=== PATIENT | male | born 1985 | race American Indian/Alaskan Native ===

== ENCOUNTER 2020-12-07 20:44 | Observation (INO) | payer MEDICAID ==
[2020-12-07] MEDS ORDERED: SODIUM CHLORIDE 0.9% 1000 ML 1,000 ML IV ONE (22:14)
--- NOTE | 2020-12-07 22:19 | Emergency Department Report ---
HPI - General Chief Complaint: Abdominal Pain Time Seen by Provider: 12/07/20 21:59 - HPI HPI: MSE 5 The patient is a 35-year-old male present with a chief complaint of abdominal pain. Patient states for the past 3 days he has had intermittent epigastric abdominal pain described as sharp in nature. Patient also complains of soreness to the bilateral ribs. Patient states he had 2 episodes of nausea vomiting yesterday. The patient used an enema yesterday and said he passed brown stool with yellow and clear mucus. Patient currently gives his pain a score of 8/10. The patient states she has not received any vaccinations against COVID-19 ED Past Medical Hx - Past Medical History Hx Diabetes: Yes - Surgical History Additional Surgical History: Cataract surgery - Family History Family history: no significant - Social History Smoking Status: Never Smoker Substance Use Type: Alcohol (Rarely), Marijuana ED Review of Systems ROS: Stated complaint: STOMACH PAIN NAUSEA FATIGUE HBS Other details as noted in HPI Constitutional: denies: fever Eyes: denies: eye pain ENT: denies: throat pain Respiratory: denies: wheezing Cardiovascular: denies: chest pain Endocrine: no symptoms reported Gastrointestinal: abdominal pain, nausea, vomiting, constipation Genitourinary: denies: dysuria Musculoskeletal: denies: back pain Neurological: denies: headache Physical Exam - Physical Exam Vital Signs: Vital Signs 12/07/20 21:49 Temperature 98.3 F Pulse Rate 97 H Respiratory 16 Rate Blood Pressure 115/83 O2 Sat by Pulse 98 Oximetry Physical Exam: GENERAL: The patient is well-developed well-nourished male lying on stretcher not appearing to be in acute distress. [] HEENT: Normocephalic. Atraumatic. Extraocular motions are intact. Patient has moist mucous membranes. NECK: Supple. Trachea midline CHEST/LUNGS: Clear to auscultation. There is no respiratory distress noted. HEART/CARDIOVASCULAR: Regular. There is no tachycardia. There is no gallop rub or murmur. ABDOMEN: Abdomen is soft, with diffuse tenderness to palpation. There is no rebound or guarding. Patient has normal bowel sounds. There is no abdominal distention. SKIN: There is no rash. There is no edema. There is no diaphoresis. NEURO: The patient is awake, alert, and oriented. The patient is cooperative. The patient has no focal neurologic deficits. The patient has normal speech. GCS 15 MUSCULOSKELETAL: There is no CVA tenderness. There is no evidence of acute injury. ED Course Vital Signs 12/07/20 21:49 Temperature 98.3 F Pulse Rate 97 H Respiratory 16 Rate Blood Pressure 115/83 O2 Sat by Pulse 98 Oximetry ED Medical Decision Making - Lab Data Result diagrams: 12/07/20 22:35 12/07/20 22:35 Laboratory Tests 12/07/20 12/07/20 12/07/20 21:59 22:35 22:35 WBC 6.6 RBC 5.74 H Hgb 15.4 H Hct 46.5 H MCV 81 L MCH 27 L MCHC 33 RDW 14.1 Plt Count 295 Lymph % (Auto) 28.6 [place] % (Auto) 9.1 H Eos % (Auto) 1.8 Baso % (Auto) 0.6 Lymph # (Auto) 1.9 Trinity # (Auto) 0.6 Eos # (Auto) 0.1 Baso # (Auto) 0.0 Seg Neutrophils % 59.9 Seg Neutrophils # 4.0 VBG pH Sodium 133 L Potassium 4.8 Chloride 92.9 L Carbon Dioxide 19 L Anion Gap 26 BUN 12 Creatinine 0.8 Estimated GFR > 60 BUN/Creatinine Ratio 15 Glucose 330 H POC Glucose 342 H Calcium 10.2 Total Bilirubin 0.90 AST 10 ALT 11 Alkaline Phosphatase 95 Total Creatine Kinase 58 CK-MB (CK-2) 2.3 CK-MB (CK-2) Rel Index 3.9 Troponin T < 0.010 Total Protein 8.8 H Albumin 4.4 Albumin/Globulin Ratio 1.0 Lipase 83 H 12/07/20 22:35 WBC RBC Hgb Hct MCV MCH MCHC RDW Plt Count Lymph % (Auto) [place] % (Auto) Eos % (Auto) Baso % (Auto) Lymph # (Auto) Trinity # (Auto) Eos # (Auto) Baso # (Auto) Seg Neutrophils % Seg Neutrophils # VBG pH 7.308 L Sodium Potassium Chloride Carbon Dioxide Anion Gap BUN Creatinine Estimated GFR BUN/Creatinine Ratio Glucose POC Glucose Calcium Total Bilirubin AST ALT Alkaline Phosphatase Total Creatine Kinase CK-MB (CK-2) CK-MB (CK-2) Rel Index Troponin T Total Protein Albumin Albumin/Globulin Ratio Lipase - EKG Data -: EKG Interpreted by Ms EKG shows normal: sinus rhythm Rate: normal - EKG Data Interpretation: nonspecific ST-T wave gray - Differential Diagnosis Constipation, SBO, pancreatitis, gastritis, ACS, PUD Critical care attestation.: If time is entered above; I have spent that time in minutes in the direct care of this critically ill patient, excluding procedure time. ED Disposition Clinical Impression: Acute abdominal pain, DKA (diabetic ketoacidosis) Disposition: ADMITTED INPATIENT Is pt being admited?: Yes Does the pt Need Aspirin: No Condition: Fair Instructions: Diabetic Ketoacidosis (ED) Time of Disposition: 01:13 (Hospitalist notified (Dr Hernandez))
[2020-12-07] MEDS ORDERED: ONDANSETRON 4 MG/2 ML INJ IV ONE (23:12)
[2020-12-07] MEDS ORDERED: KETOROLAC 30 MG/1 ML INJ IV ONE (23:13)
[2020-12-07 23:21] LABS: Basophils % (Auto) 0.6 % (0.0-1.8); Eosinophils # (Auto) 0.1 K/mm3 (0.0-0.4); Eosinophils % (Auto) 1.8 % (0.0-4.3); Hemoglobin 15.4 gm/dl (11.8-15.2); Lymphocytes # (Auto) 1.9 K/mm3 (1.2-5.4); Lymphocytes % (Auto) 28.6 % (13.4-35.0); Monocytes # (Auto) 0.6 K/mm3 (0.0-0.8); Monocytes % (Auto) 9.1 % (0.0-7.3)
[2020-12-07 23:34] LABS: Creatine Kinase MB 2.3 ng/mL (0.0-4.0); Hematocrit 46.5 % (35.5-45.6); Mean Corpuscular HGB Conc 33 % (32-34); Mean Corpuscular Volume 81 fl (84-94); Platelet Count 295 K/mm3 (140-440); Red Blood Count 5.74 M/mm3 (3.65-5.03); Red Cell Distribution Width 14.1 % (13.2-15.2)
[2020-12-07 23:38] LABS: Alanine Aminotransferase 11 units/L (7-56); Albumin 4.4 g/dL (3.9-5); BUN/Creatinine Ratio 15; Blood Urea Nitrogen 12 mg/dL (9-20); Calcium 10.2 mg/dL (8.4-10.2); Hemolysis Index 41
--- NOTE | 2020-12-08 00:45 | Cat Scan Report ---
CT ABDOMEN AND PELVIS WITH CONTRAST INDICATION / CLINICAL INFORMATION: Epigastric pain, constipation, nausea vomiting. TECHNIQUE: Axial CT images were obtained through the abdomen and pelvis after 100 cc of Omnipaque [address] scans at this location are performed using CT dose reduction for ALARA by means of automated exposure control. COMPARISON: None available. FINDINGS: LOWER CHEST: No significant abnormality. AORTA / ARTERIES: No significant abnormality. IVC / VEINS: No significant abnormality. LYMPH NODES: No significant adenopathy. COLON: No significant abnormality. APPENDIX: No significant abnormality. STOMACH / SMALL BOWEL: No significant abnormality. PERITONEUM: No free fluid. No free air. No fluid collection. LIVER: No significant abnormality. GALLBLADDER: No significant abnormality. BILE DUCTS: No significant abnormality. PANCREAS: No significant abnormality. SPLEEN: No significant abnormality. ADRENALS: No significant abnormality. RIGHT KIDNEY / URETER: No significant abnormality. LEFT KIDNEY / URETER: No significant abnormality. URINARY BLADDER: No significant abnormality. REPRODUCTIVE ORGANS: No significant abnormality. SKELETAL SYSTEM: No significant abnormality. ADDITIONAL FINDINGS: There is a metallic density within the soft tissues of the left posterior thorax . IMPRESSION: 1. No CT findings to explain symptomatology. 2. Metallic density within the subcutaneous tissues of the left posterior thorax. Signer Name: Jonn Acharya DO Signed: 12/08/2020 12:40 AM Workstation Name: [id number]
[2020-12-08] MEDS ORDERED: INSULIN REGULAR, HUMAN 100 UNITS in SODIUM CHLORIDE 0.9% 99 ML IV SCH (01:00)
[2020-12-08 01:53] LABS: BUN/Creatinine Ratio 13; Blood Urea Nitrogen 12 mg/dL (9-20); Calcium 9.2 mg/dL (8.4-10.2); Hemolysis Index 0
[2020-12-08] MEDS ORDERED: SODIUM CHLORIDE 0.9% 1000 ML 1,000 ML ONE (01:54)
[2020-12-08] MEDS ORDERED: MAGNESIUM HYDROXIDE (MOM) ORAL LIQD UDC PO PRN (02:42)
[2020-12-08] MEDS ORDERED: ACETAMINOPHEN 325 MG TAB PO PRN (02:42)
[2020-12-08] MEDS ORDERED: MORPHINE 4 MG/1 ML INJ IV PRN (02:42)
[2020-12-08] MEDS ORDERED: DEXTROSE 50% IN WATER (25GM) 50 ML SYRINGE IV PRN ×2 (02:42→07:33)
[2020-12-08] MEDS ORDERED: MORPHINE 2 MG/1 ML INJ IV PRN (02:42)
--- NOTE | 2020-12-08 03:45 | History and Physical Report ---
History of Present Illness Date of examination: 12/08/20 Date of admission: 12/08/20 01:11 Chief complaint: Abdominal Pain History of present illness: 35-year-old -[place] male with known history of diabetes mellitus presenting to the emergency room today complaining of epigastric abdominal pain. Epigastric pain has been intermittent and sharp. No known relieving or exacerbating factors. Patient indicates that he has had multiple episodes of nausea and vomiting all of which started yesterday. He has been out of his insulin for some weeks. Patient denies any chest pain or shortness of breath, no fever or chills, no headache or dizziness and no diaphoresis. He denies any diarrhea but indicates that he has had some brown stool which is yellow and clear mucus. He denies any sick contacts and no recent travel. Denies any contact with anyone with COVID- 19. He indicates he has not been fully vaccinated against COVID-19. Work-up in the emergency room today, blood glucose was found to be about 330 with an anion gap of 26. He was initially placed on IV fluid and insulin drip however his blood sugar glucose improved to the 200s. Past History Past Medical History: diabetes Past Surgical History: cataract removal, Other (Uses marijuana) Social history: alcohol abuse (Occasional Alcohol) Family history: no significant family history Medications and Allergies Allergies Allergy/AdvReac Type Severity Reaction Status Date / Time No Known Allergies Allergy Verified 12/07/20 21:52 Active Meds: Active Medications Acetaminophen (Acetaminophen 325 Mg Tab) 650 mg PO Q4H PRN PRN Reason: Pain MILD(1-3)/Fever >100.5/LOERA Dextrose (Dextrose 50% In Water (25gm) 50 Ml Syringe) 0 ml IV Q30MIN PRN; Protocol PRN Reason: Hypoglycemia Heparin Sodium (Porcine) (Heparin 5,000 Unit/1 Ml Vial) 5,000 unit SUB-Q Q8HR WILNER Insulin Human Regular 100 (units/ Sodium Chloride) 100 mls @ 4 mls/hr IV TITR WILNER; Protocol Stop: 12/08/20 04:15 Sodium Chloride (Nacl 0.9% 1000 Ml) 1,000 mls @ 150 mls/hr IV DIRECT WILNER Insulin Human Lispro (Insulin Lispro 100 Unit/Ml) 0 unit SUB-Q Q6HR WILNER; Protocol Magnesium Hydroxide (Magnesium Hydroxide (Mom) Oral Liqd Udc) 30 ml PO Q4H PRN PRN Reason: Constipation Morphine Sulfate (Morphine 2 Mg/1 Ml Inj) 2 mg IV Q4H PRN PRN Reason: Pain, Moderate (4-6) Morphine Sulfate (Morphine 4 Mg/1 Ml Inj) 4 mg IV Q4H PRN PRN Reason: Pain , Severe (7-10) Ondansetron HCl (Ondansetron 4 Mg/2 Ml Inj) 4 mg IV Q8H PRN PRN Reason: Nausea And Vomiting Sodium Chloride (Sodium Chloride 0.9% 10 Ml Flush Syringe) 10 ml IV BID WILNER Sodium Chloride (Sodium Chloride 0.9% 10 Ml Flush Syringe) 10 ml IV PRN PRN PRN Reason: LINE FLUSH Review of Systems Constitutional: no fever, no chills Ears, nose, mouth and throat: no nasal congestion, no sore throat Cardiovascular: no chest pain, no palpitations Respiratory: no cough, no shortness of breath Gastrointestinal: abdominal pain, nausea, vomiting Genitourinary Male: no dysuria, no hematuria, no flank pain Musculoskeletal: no neck pain, no low back pain Integumentary: no rash, no pruritis Neurological: no headaches, no confusion Psychiatric: no anxiety, no depression Endocrine: no polyphagia, no polydipsia, no polyuria, no nocturia Exam - Constitutional Vitals: Temp Pulse Resp BP Pulse Ox 98.3 F 97 H 16 115/83 98 12/07/20 21:49 12/07/20 21:49 12/07/20 21:49 12/07/20 21:49 12/07/20 21:49 General appearance: Present: no acute distress, well-nourished - EENT Eyes: Present: PERRL, EOM intact. Absent: scleral icterus ENT: hearing intact, clear oral mucosa, dentition normal - Neck Neck: Present: supple, normal ROM - Respiratory Respiratory effort: normal Respiratory: bilateral: CTA - Cardiovascular Rhythm: regular Heart Sounds: Present: S1 & S2. Absent: gallop, systolic murmur, diastolic murmur, rub, click - Extremities Extremities: no ischemia, pulses intact, pulses symmetrical, No edema, normal temperature, normal color, Full ROM Peripheral Pulses: within normal limits - Abdominal General gastrointestinal: Present: soft, non-tender, non-distended, normal bowel sounds. Absent: mass - Integumentary Integumentary: Present: clear, warm, dry. Absent: rash - Musculoskeletal Musculoskeletal: strength equal bilaterally - Psychiatric Psychiatric: appropriate mood/affect, intact judgment & insight, memory intact, cooperative - Neurologic Neurologic: CNII-XII intact, no focal deficits, moves all extremities HEART Score - HEART Score Troponin: Troponin T < 0.010 ng/mL (0.00-0.029) 12/07/20 22:35 Results - Labs CBC & Chem 7: 12/07/20 22:35 12/08/20 01:05 Labs: Abnormal lab results 12/07/20 12/07/20 12/07/20 Range/Units 21:59 22:35 22:35 RBC 5.74 H (3.65-5.03) M/mm3 Hgb 15.4 H (11.8-15.2) gm/dl Hct 46.5 H (35.5-45.6) % MCV 81 L (84-94) fl MCH 27 L (28-32) pg [place] % (Auto) 9.1 H (0.0-7.3) % VBG pH (7.320-7.420) Sodium 133 L (137-145) mmol/L Potassium (3.6-5.0) mmol/L Chloride 92.9 L (98-107) mmol/L Carbon Dioxide 19 L (22-30) mmol/L Glucose 330 H (75-100) mg/dL POC Glucose 342 H (70-105) mg/dL Total Protein 8.8 H (6.3-8.2) g/dL Lipase 83 H (13-60) units/L 12/07/20 12/08/20 12/08/20 Range/Units 22:35 01:05 02:16 RBC (3.65-5.03) M/mm3 Hgb (11.8-15.2) gm/dl Hct (35.5-45.6) % MCV (84-94) fl MCH (28-32) pg [place] % (Auto) (0.0-7.3) % VBG pH 7.308 L (7.320-7.420) Sodium 130 L (137-145) mmol/L Potassium 5.1 H (3.6-5.0) mmol/L Chloride 94.1 L (98-107) mmol/L Carbon Dioxide 20 L (22-30) mmol/L Glucose 374 H (75-100) mg/dL POC Glucose 292 H (70-105) mg/dL Total Protein (6.3-8.2) g/dL Lipase (13-60) units/L Assessment and Plan - Patient Problems (1) Hyperglycemia Current Visit: Yes Status: Acute Plan to address problem: Patient admitted and placed on IV fluid. He was initially placed on insulin drip. We will continue on IV fluid and place patient on sliding scale insulin. We will monitor Accu-Cheks closely. (2) Acute abdominal pain Current Visit: Yes Status: Acute Plan to address problem: Possibly secondary to the nausea and vomiting. CT of the abdomen and pelvis did not reveal any acute abnormality. (3) DVT prophylaxis Current Visit: Yes Status: Acute Plan to address problem: Patient placed on subcutaneous heparin. (4) Full code status Current Visit: Yes Status: Acute Plan to address problem: Patient is full code.
[2020-12-08] MEDS ORDERED: ONDANSETRON 4 MG/2 ML INJ IV ONE (04:56)
[2020-12-08] MEDS ORDERED: HEPARIN 5,000 UNIT/1 ML VIAL SUB-Q SCH (06:00)
[2020-12-08] MEDS: INSULIN LISPRO 100 UNIT/ML SUB-Q SCH ×5 (06:13→21:41)
[2020-12-08] MEDS: HEPARIN 5,000 UNIT/1 ML VIAL SUB-Q SCH ×3 (06:14→21:42)
[2020-12-08] MEDS: SODIUM CHLORIDE 0.9% 1000 ML 1,000 ML IV SCH ×3 (06:40→21:42)
[2020-12-08 07:34] LABS: BUN/Creatinine Ratio 13; Blood Urea Nitrogen 10 mg/dL (9-20); Calcium 9.1 mg/dL (8.4-10.2); Hemolysis Index 0
[2020-12-08] MEDS: INSULIN GLARGINE 100 UNITS/ML SUB-Q SCH (09:06)
[2020-12-08 09:25] LABS: BUN/Creatinine Ratio 13; Blood Urea Nitrogen 10 mg/dL (9-20); Hemolysis Index 4
[2020-12-08] MEDS ORDERED: HYDROmorphone 1 MG/1 ML INJ ONE (10:48)
[2020-12-08] MEDS ORDERED: INSULIN LISPRO 100 UNIT/ML SUB-Q SCH (11:30)
--- NOTE | 2020-12-08 12:53 | Event Note ---
Date: 12/08/20 Patient seen and examined this morning. Reports taking 18 units of Lantus and 12 units of lispro with meals at home. Been out of insulin for the last 2 weeks. Currently no longer in DKA. S/p insulin drip, 20s of Lantus added along with 8 of lispro with meals plus sliding scale. Plan to discharge patient tomorrow. Will place prescriptions on the chart.
[2020-12-08 17:22] LABS: BUN/Creatinine Ratio 10; Blood Urea Nitrogen 9 mg/dL (9-20); Calcium 8.9 mg/dL (8.4-10.2); Hemolysis Index 7
[2020-12-08 20:39] LABS: Bilirubin,Urine NEG (Negative); Blood,Urine NEG (Negative); Color,Urine Yellow (Yellow); Mucus,Urine 1+ /HPF; Protein,Urine <15 mg/dL mg/dL (Negative); RBC,Urine < 1.0 /HPF (0.0-6.0); Urobilinogen,Urine < 2.0 mg/dL (<2.0)
[2020-12-08] MEDS: ONDANSETRON 4 MG/2 ML INJ IV PRN (21:45)
[2020-12-09 02:50] LABS: BUN/Creatinine Ratio 10; Blood Urea Nitrogen 8 mg/dL (9-20); Calcium 8.7 mg/dL (8.4-10.2); Hemolysis Index 5
[2020-12-09 04:31] VITALS: BP 98/46
[2020-12-09] MEDS: HEPARIN 5,000 UNIT/1 ML VIAL SUB-Q SCH (05:20)
[2020-12-09] MEDS ORDERED: POTASSIUM CHLORIDE ER 20 MEQ TAB PO NR (08:00)
[2020-12-09] MEDS: INSULIN GLARGINE 100 UNITS/ML SUB-Q SCH (11:08)
[2020-12-09] MEDS: INSULIN LISPRO 100 UNIT/ML SUB-Q SCH ×2 (11:09→11:10)
[2020-12-09] MEDS: ONDANSETRON 4 MG/2 ML INJ IV PRN (11:25)
--- NOTE | 2020-12-09 12:38 | Discharge Summary ---
Providers - Providers Date of Admission: 12/08/20 01:11 Date of discharge: 12/09/20 Attending physician: RENO FRANCISCO MD 12/08/20 02:43 Consult to Dietitian/Nutrition [CONS] Routine Physician Instructions: Reason For Exam: Reason for Consult: Diet education [facility] Reason for admission: DKA Condition: Fair Pertinent studies: Reviewed Procedures: None Hospital course: The patient is a 35-year-old male with past medical history of insulin-dependent diabetes who presented after multiple episodes of nausea and vomiting. With further questioning, the patient admitted to being out of insulin for numerous weeks prior to presentation. In the ED the patient was found to be in DKA and required IV fluids and insulin gtt. the patient was transitioned to subcutaneous insulin (Lantus 20 units daily) with sliding scale. The patient is being discharged home after receiving extensive diabetic counseling at the bedside. Patient expresses understanding. Disposition: 01 HOME / SELF CARE / HOMELESS Final Discharge Diagnosis (Prints w/discharge instructions): DKA Time spent for discharge: 35 min Core Measure Documentation - Palliative Care Palliative Care/ Comfort Measures: Not Applicable - Core Measures Any of the following diagnoses?: none - VTE Discharge Requirements Deep Vein Thrombosis/Pulmonary Embolism Present on Admission: No Has pt received <5 days of overlap therapy or INR<2.0: No (Not indicated) Anticoagulant overlap therapy prescribed at discharge: No Contraindication No Overlap Therapy order at DC: Not Indicated - Acute NH Discharge Requirements Aspirin at discharge: No Reason for no aspirin on DC: Medical contraindication (Not indicated) KIARA/ARB for LVSD if EF <40%: Not Applicable Reason for no KIARA/ARB: Medical contraindication (Not indicated) Beta nacho at discharge: No Reason for no beta nacho on DC: Medical contraindication (Not indicated) Statin for LDL = or >100 mg/dl on DC: Not Applicable Reason for no statin on DC: Medical contraindication (Not indicated) - Heart Failure Discharge Requirements KIARA/ARB for LVSD if EF <40%: Not Applicable Reason for no KIARA/ARB: Medical contraindication Beta nacho at discharge: No Reason for no beta nacho on DC: Medical contraindication (Not indicated) - Stroke Discharge Requirements Statin for LDL = or >70 mg/dl on DC: Not Applicable Reason for no statin on DC: Not Indicated Anticoag for atrial fib/atrial flutter: Not Applicable Reason for no anticoag for AF/F on DC: Not Indicated Antithrombotic for ischemic stroke: No Reason for no antithrombotic on DC: Not Indicated Exam - Constitutional Vitals: Temp Pulse Resp BP Pulse Ox 98.7 F 73 18 98/46 97 12/09/20 04:23 12/09/20 04:23 12/09/20 04:23 12/09/20 04:23 12/09/20 04:23 General appearance: Present: no acute distress, well-nourished - EENT Eyes: Present: PERRL, EOM intact ENT: hearing intact, clear oral mucosa, dentition normal - Neck Neck: Present: supple, normal ROM - Respiratory Respiratory effort: normal - Cardiovascular Rhythm: regular Heart Sounds: Present: S1 & S2 - Extremities Extremities: no ischemia, pulses intact, pulses symmetrical, No edema, normal temperature, normal color Peripheral Pulses: within normal limits - Abdominal General gastrointestinal: Present: soft, non-tender, non-distended, normal bowel sounds Male genitourinary: Present: deferred - Rectal Rectal Exam: deferred - Integumentary Integumentary: Present: clear, warm, dry - Musculoskeletal Musculoskeletal: strength equal bilaterally - Psychiatric Psychiatric: appropriate mood/affect, intact judgment & insight, memory intact, cooperative - Neurologic Neurologic: CNII-XII intact, moves all extremities Plan Diet: diabetic Care Plan Goals: Please make appointment with [place] diabetes team. Please resume insulin at home doses. Assessment: Abdominal pain resolved. Patient overall status improved. DKA resolved. Basal bolus insulin regimen started. Discharged home after overnight observation. Follow up with: DOMITILA GRAHAMLAGUNITAS MD HIRA [Primary Care Provider] - 7 Days Prescriptions: Insulin Lispro [Admelog Solostar] 12 units SQ TID #1 box Insulin Glargine,Hum.rec.anlog [Basaglar Kwikpen U-100] 11 unit SQ QDAY #1 box Insulin Glargine,Hum.rec.anlog [Basaglar Kwikpen U-100] 100 unit SQ DAILY #3 insuln.pen
--- NOTE | 2020-12-11 11:51 | Electrocardiograph Report ---
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
== END 2020-12-09 12:52 | disposition home or self-care (01) ==
LOC: ED 20:44 → CC1 12-08 01:11 → 3A 12-08 03:14
PROVIDERS: ADMIT Internal Medicine Geriatric Medicine; ATTEND Student in an Organized Health Care Education/Training Program
DX: R10.13 Epigastric pain (principal); E11.10 Type 2 diabetes mellitus with ketoacidosis without coma; E11.65 Type 2 diabetes mellitus with hyperglycemia; F12.90 Cannabis use, unspecified, uncomplicated; Z98.49 Cataract extraction status, unspecified eye; Z79.4 Long term (current) use of insulin
CPT/HCPCS: 36415; 74177; 80048; 80053; 81001; 82550; 82553; 82805; 82962; 83690; 83735; 84100; 84484; 85025; 93005; 96361; 96372; 96374; 96375; 96376; 99285; G0378; J1644; J1885; J2270; J2405; J7030; Q9967; J1170; J1815